=== PATIENT | male | born 2000 | race Caucasian/White ===

== ENCOUNTER 2020-04-16 18:14 | Emergency (ER) | payer OTHER ==
[~2020-04-16] VITALS: Ht 165.1 cm; Wt 88.5 kg
== END 2020-04-16 22:06 | disposition home or self-care (01) ==
LOC: ER 18:14 → EMR PED 18:14 → ER 19:56
DX: R60.0 Localized edema (principal); Z20.828 Contact with and (suspected) exposure to other viral communicable diseases